=== PATIENT | female | born 1990 | race Caucasian/White ===

== ENCOUNTER 2016-09-29 09:56 | Outpatient (CLI) | payer OTHER | END 2016-09-29 09:57 | disposition home or self-care (01) | DX: R93.8 Abnormal findings on diagnostic imaging of other specified body structures (principal); C18.1 Malignant neoplasm of appendix ==

== ENCOUNTER 2016-10-04 07:55 | Day surgery (SDC) | payer OTHER ==
[2016-10-04] MEDS ORDERED: LACTATED RINGERS 1,000 ML IV ONE (09:02)
[2016-10-04] MEDS ORDERED: MIDAZOLAM 2 MG/2 ML VIAL IVP ONE (09:30)
[2016-10-04] MEDS ORDERED: fentaNYL 250 MCG/5 ML VIAL IVP ONE (09:30)
== END 2016-10-04 07:56 | disposition home or self-care (01) ==
PROC: 0DBL8ZX Excision of Transverse Colon, Via Natural or Artificial Opening Endoscopic, Diagnostic (ICD-10-PCS; principal; 2016-10-04 09:00)
DX: R93.3 Abnormal findings on diagnostic imaging of other parts of digestive tract (principal); D3A.020 Benign carcinoid tumor of the appendix; K64.8 Other hemorrhoids; Z98.0 Intestinal bypass and anastomosis status
CPT/HCPCS: 45380; J3010; J7120

== ENCOUNTER 2017-10-05 10:25 | Outpatient (CLI) | payer OTHER ==
[2017-10-05 13:00] LABS: BASOPHILS % (AUTO) 1.2 %; EOSINOPHILS # (AUTO) 0.1 10^3/uL (0.0-0.7); HGB - HEMOGLOBIN 12.6 g/dL (12.0-16.0); LYMPHOCYTES # (AUTO) 0.7 10^3/uL (1.5-3.5); LYMPHOCYTES % (AUTO) 23.9 %; MEAN CORPUSCULAR HEMOGLOBIN 29.1 pg (27.0-31.0); MEAN CORPUSCULAR HGB CONC 33.5 g/dL (32.0-36.0); MEAN CORPUSCULAR VOLUME 86.8 fL (81.0-99.0); MEAN PLATELET VOLUME 9.8 fL (7.9-10.8); MONOCYTES # (AUTO) 0.8 10^3/uL (0.0-1.0); NEUTROPHILS # (AUTO) 1.4 10^3/uL (1.5-6.6); NEUTROPHILS % (AUTO) 45.9 %; PLT - PLATELET COUNT 192 10^3/uL (130-450); RED BLOOD COUNT 4.34 10^6/uL (4.20-5.40); RED CELL DISTRIBUTION WIDTH 13.4 % (12.0-15.0)
[2017-10-05 13:24] LABS: BUN - BLOOD UREA NITROGEN 15 mg/dL (6-20); CALCIUM 8.8 mg/dL (8.5-10.3); CARBON DIOXIDE - CO2 26 mmol/L (21-32); CHLORIDE 107 mmol/L (101-111); CREATININE 0.6 mg/dL (0.4-1.0); GFR - MDRD 118 (>89); GLUCOSE 79 mg/dL (70-100); SODIUM 137 mmol/L (135-145)
[2017-10-05 13:38] LABS: PLATELET MORPHOLOGY RARE GIANT PLATELETS (NORMAL); RBC MORPHOLOGY (MULTIPLE) 2+ ANISOCYTOSIS (NORMAL)
== END 2017-10-05 10:26 | disposition home or self-care (01) ==
LOC: LAB.WCP 10:25
PROVIDERS: ATTEND Physician Assistant Medical
DX: R63.5 Abnormal weight gain (principal); Z51.81 Encounter for therapeutic drug level monitoring; Z79.899 Other long term (current) drug therapy
CPT/HCPCS: 36415; 80048; 84443; 85025

== ENCOUNTER 2018-01-20 13:08 | Outpatient (CLI) | payer OTHER ==
--- NOTE | 2018-01-20 14:34 | Ultrasound Report ---
Procedure Date: 01/20/2018 Accession Number: [id number] / [id number] Procedure: US - Pelvic w/Transvaginal CPT Code: FULL RESULT: EXAM: Pelvic w/Transvaginal DATE: 01/20/2018 2:11 PM CLINICAL HISTORY: UNSPECIFIED OVARIAN CYST, LEFT SIDE COMPARISON: None. TECHNIQUE: Realtime transabdominal imaging performed to identify the uterus and adnexa and as an overview of other pelvic structures, followed by transvaginal imaging for better assessment of the endometrium and/or adnexa, with static image documentation. FINDINGS: Uterus: 7.5 x 3.6 x 3.2 cm, volume of 45 cc. Retroverted position. Normal overall size and echotexture. Masses: None. Endometrium: 11 mm. Normal. Cervix: Unremarkable. Right Ovary/Adnexa: 3.4 x 2.1 x 2.1 cm, volume 8 cc. Normal echotexture. Blood flow is present. Incidental right ovarian follicle. Left Ovary/Adnexa: 2.3 x 2.2 x 1.1 cm, volume 3 cc. Normal echotexture. Blood flow is present. No adnexal mass is seen. Free Fluid: None. Other: None. IMPRESSION: Normal pelvic ultrasound. [facility]
== END 2018-01-20 13:09 | disposition home or self-care (01) ==
LOC: DI 13:08
PROVIDERS: ATTEND Family Medicine
DX: N83.202 Unspecified ovarian cyst, left side (principal)
CPT/HCPCS: 76830; 76856

== ENCOUNTER 2018-12-25 08:00 | Outpatient (CLI) | payer OTHER ==
[2018-12-25 12:52] LABS: CHOL/HDL RATIO 2.4 (<4.4); CHOLESTEROL 146 mg/dL; HDL CHOLESTEROL 62 mg/dL; LDL CHOLESTEROL,CALCULATED 75 mg/dL; LDL/HDL RATIO 1.2 (<4.4); VLDL CHOLESTEROL 9 mg/dL
== END 2018-12-25 23:59 | disposition home or self-care (01) ==
LOC: LAB.N 08:00
PROVIDERS: ATTEND Nurse Practitioner Gerontology
DX: R53.83 Other fatigue (principal); R63.5 Abnormal weight gain; Z13.9 Encounter for screening, unspecified
CPT/HCPCS: 36415; 80061; 83721; 84443

== ENCOUNTER 2019-06-22 09:24 | Outpatient (CLI) | payer OTHER ==
[2019-06-22 09:59] LABS: BASOPHILS % (AUTO) 0.6 %; EOSINOPHILS # (AUTO) 0.1 10^3/uL (0.0-0.7); EOSINOPHILS % (AUTO) 2.4 %; HGB - HEMOGLOBIN 12.1 g/dL (12.0-16.0); LYMPHOCYTES # (AUTO) 1.3 10^3/uL (1.5-3.5); LYMPHOCYTES % (AUTO) 26.5 %; MEAN CORPUSCULAR HEMOGLOBIN 28.7 pg (27.0-31.0); MEAN CORPUSCULAR VOLUME 89.6 fL (81.0-99.0); MEAN PLATELET VOLUME 10.5 fL (7.9-10.8); MONOCYTES # (AUTO) 0.6 10^3/uL (0.0-1.0); MONOCYTES % (AUTO) 10.9 %; NEUTROPHILS % (AUTO) 59.4 %; PLT - PLATELET COUNT 236 10^3/uL (130-450); RED BLOOD COUNT 4.22 10^6/uL (4.20-5.40); WHITE BLOOD COUNT 5.1 x10^3/uL (4.8-10.8)
[2019-06-22 10:18] LABS: ALBUMIN 4.3 g/dL (3.2-5.5); ALBUMIN/GLOBULIN RATIO 1.5 (1.0-2.2); ALKALINE PHOSPHATASE 43 IU/L (42-121); ALT ALANINE AMINOTRANSFERASE 13 IU/L (10-60); AST ASPARTATE AMINOTRANSFERASE 19 IU/L (10-42); BILIRUBIN,TOTAL 0.5 mg/dL (0.2-1.0); BUN - BLOOD UREA NITROGEN 16 mg/dL (6-20); CALCIUM 8.7 mg/dL (8.5-10.3); CARBON DIOXIDE - CO2 28 mmol/L (21-32); CHLORIDE 105 mmol/L (101-111); CREATININE 0.6 mg/dL (0.4-1.0); GFR - MDRD 117 (>89); GLUCOSE 91 mg/dL (70-100); SODIUM 140 mmol/L (135-145); TOTAL PROTEIN 7.2 g/dL (6.7-8.2)
[2019-06-22 10:20] LABS: CRP - C-REACTIVE PROTEIN < 1.0 mg/dL (0-1.0)
== END 2019-06-22 09:25 | disposition home or self-care (01) ==
LOC: LAB 09:24
PROVIDERS: ATTEND Internal Medicine Gastroenterology
DX: K29.80 Duodenitis without bleeding (principal); K52.9 Noninfective gastroenteritis and colitis, unspecified; D3A.020 Benign carcinoid tumor of the appendix; K63.9 Disease of intestine, unspecified
CPT/HCPCS: 36415; 80053; 81599; 85025; 86140; 86316

== ENCOUNTER 2021-09-17 11:27 | Outpatient (CLI) | payer OTHER ==
[2021-09-17 17:51] LABS: BASOPHILS % (AUTO) 0.8 %; EOSINOPHILS # (AUTO) 0.1 10^3/uL (0.0-0.7); HCT - HEMATOCRIT 39.8 % (37.0-47.0); HGB - HEMOGLOBIN 12.5 g/dL (12.0-16.0); LYMPHOCYTES # (AUTO) 1.9 10^3/uL (1.5-3.5); LYMPHOCYTES % (AUTO) 35.8 %; MEAN CORPUSCULAR HEMOGLOBIN 28.8 pg (27.0-31.0); MEAN CORPUSCULAR HGB CONC 31.4 g/dL (32.0-36.0); MEAN CORPUSCULAR VOLUME 91.7 fL (81.0-99.0); MEAN PLATELET VOLUME 11.4 fL (7.9-10.8); MONOCYTES # (AUTO) 0.5 10^3/uL (0.0-1.0); MONOCYTES % (AUTO) 9.4 %; NEUTROPHILS # (AUTO) 2.7 10^3/uL (1.5-6.6); NEUTROPHILS % (AUTO) 52.8 %; PLT - PLATELET COUNT 259 10^3/uL (130-450); RED BLOOD COUNT 4.34 10^6/uL (4.20-5.40); RED CELL DISTRIBUTION WIDTH 13.3 % (12.0-15.0); WHITE BLOOD COUNT 5.2 x10^3/uL (4.8-10.8)
[2021-09-17 18:21] LABS: THYROID STIMULATING HORMONE 1.34 uIU/mL (0.34-5.60)
[2021-09-17 18:22] LABS: ALBUMIN 4.1 g/dL (3.2-5.5); ALBUMIN/GLOBULIN RATIO 1.5 (1.0-2.2); ALKALINE PHOSPHATASE 41 IU/L (42-121); ALT ALANINE AMINOTRANSFERASE 15 IU/L (10-60); AST ASPARTATE AMINOTRANSFERASE 18 IU/L (10-42); BILIRUBIN,TOTAL 0.6 mg/dL (0.2-1.0); BUN - BLOOD UREA NITROGEN 18 mg/dL (6-20); CALCIUM 8.8 mg/dL (8.5-10.3); CARBON DIOXIDE - CO2 27 mmol/L (21-32); CHLORIDE 103 mmol/L (101-111); CHOL/HDL RATIO 1.9 (<4.4); CHOLESTEROL 139 mg/dL; CREATININE 0.7 mg/dL (0.4-1.0); GFR - MDRD 96 (>89); GLUCOSE 84 mg/dL (70-100); HDL CHOLESTEROL 74 mg/dL; POTASSIUM 3.9 mmol/L (3.5-5.0); SODIUM 137 mmol/L (135-145); TOTAL PROTEIN 6.9 g/dL (6.7-8.2); TRIGLYCERIDES 34 mg/dL
== END 2021-09-17 11:28 | disposition home or self-care (01) ==
LOC: LAB.N 11:27
PROVIDERS: ATTEND Nurse Practitioner
DX: R53.83 Other fatigue (principal); Z13.220 Encounter for screening for lipoid disorders
CPT/HCPCS: 36415; 80053; 80061; 82607; 83721; 84443; 85025